=== PATIENT | female | born 1970 | race Caucasian/White ===

== ENCOUNTER 2016-09-21 10:02 | Emergency (ER) | payer OTHER ==
[~2016-09-21] VITALS: Ht 154.9 cm; Wt 63.5 kg
[2016-09-21 10:12] VITALS: BP 133/81
--- NOTE | 2016-09-21 10:33 | ED UPPER/LOWER EXTREMITY COMPL ---
History of Present Illness General Chief Complaint: Lower Extremity Injury Stated Complaint: "I FELL AND RIPED MY KNEE OPEN" Source: patient, old records Exam Limitations: no limitations Vital Signs & Intake/Output Vital Signs & Intake/Output Vital Signs Date Time Temp Pulse Resp B/P Pulse O2 O2 Flow FiO2 Ox Delivery Rate 09/21 1200 987 09/21 1049 98.0 09/21 1012 98.0 83 20 133/81 99 Room Air Room Air Allergies Coded Allergies: No Known Allergies (09/21/16) Reconcile Medications No Known Home Medications Triage Note: PT TO ED S/P "OUT FOR MORNING RUN AND FELL ONTO PAVEMENT". ARRIVES TO ED WITH RIGHT KNEE LACERATION, NO ACTIVE BLEEDING NOTED AT THIS TIME. Triage Nurses Notes Reviewed? yes Onset: Abrupt Duration: hour(s): (1), constant Timing: single episode today Severity: mild Severity Numbers: 3 Pain/Injury Location: Right: Knee. Method of Injury: fall No Modifying Factors: none Associated Symptoms: none HPI: 46-year-old female with no medical history presents to emergency room status post mechanical fall while she was outside running sustaining laceration injury to her right knee. The patient was able to get up and walk after she also sustained abrasions to her hand however denies pain. There is no head strike no loss of consciousness. No neck back chest or abdominal pain. She has any other extremity injury. Her right knee pain is aching throbbing nonradiating. She is not taken anything for her symptoms tetanus is unknown (ANNA REDMOND) Past History Travel History Traveled to [place] past 21 day No Medical History Any Pertinent Medical History? none Neurological: NONE EENT: NONE Cardiovascular: NONE Respiratory: NONE Gastrointestinal: NONE Hepatic: NONE Renal: NONE Musculoskeletal: NONE Psychiatric: NONE Endocrine: NONE Blood Disorders: NONE Cancer(s): NONE Surgical History Surgical History: non-contributory Psychosocial History What is your primary language Thai Tobacco Use: Never used ETOH Use: denies use Illicit Drug Use: denies illicit drug use Family History Hx Contributory? No (ANNA REDMOND) Review of Systems Review of Systems Constitutional: Reports: see HPI. All Other Systems: Reviewed and Negative Comments Review of systems: See HPI, All other systems negative. Constitutional, no chills no fever, no malaise HEENT: No visual changes no sore throat no congestion Cardiovascular: No chest pain , no palpitation Skin, no rashes, no change in skin Respiratory: No dyspnea no cough no sputum GI: No nausea no vomiting, no diarrhea, no bloating/constipation Muscle skeletal: joint pain, no joint swelling, no back pain, no neck pain, Neurologic: No numbness no headache Psych: No stress Heme/endocrine: No bruising no bleeding Immunology: No lymphadenopathy (ANNA REDMOND) Physical Exam Physical Exam General Appearance: well developed/nourished, alert, awake Comments: Well-developed well-nourished patient in no apparent distress. HEENT: Atraumatic, extraocular motion intact Neck: Supple, FROM Back: FROM Cardiovascular: Regular rate and rhythms no murmurs Respiratory: No respiratory distress. Patient speaking in full complete sentences. Breath sounds clear to auscultation bilaterally: NO W/R/R Shoulder: Atraumatic/Stable. FROM . Elbow: Atraumatic/stable. FROM. No laxity Upper arm/Forearm: Atraumatic. Nontender. 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 Brisk cap refill Hip/Pelvis: Atraumatic/Stable. FROM. No pain with pelvic compression Knee: There is a 4cm superficial irregular laceration over the anterior right knee, no active bleeding no visualized or palpated foreign body FROM. No joint swelling, no effusion. No laxity. Negative belgica/anterior drawer test. No pain with ROM Leg: Atraumatic. Nontender. No edema, 5 out of 5 strength in the lower extremity, normal dorsiflexion of great toe bilaterally, gross sensation is intact, patellar reflexes 2+ Ankle/Foot: Atraumatic/stable. Skin intact. FROM. No swelling, no effusion. No laxity on exam Pulses: Normal/equal DP/PT pulses bilaterally. Brisk cap refill Neuro: Alert and oriented x3 Skin: Warm & dry;No appreciable rash on exposed skin Psych: Mood affect normal, normal memory normal judgment. Diagram Legs Front/Back 1) Laceration as described above (ANNA REDMOND) Progress Differential Diagnosis: dislocation, fracture, sprain, tendon injury, laceration Plan of Care: Orders Procedure Date/time Status XRY-KNEE COMPLETE RIGHT 09/21 1038 Active Wound was thoroughly irrigated with normal saline Betadine peroxide tetanus IM ordered, patient medicated Motrin 600 mg by mouth I discussed with the patient at length all of their results. I had an extensive conversation regarding need for close follow up with their primary care physician this week as well as return precautions. Patient will return in 7-10 days for suture removal, she will return anytime sooner with any concerns signs of infection. I discussed with her the possibility of a foreign body not seen on examination or x-ray, or deep tendon injury still exists. I answered all of their questions, they feel comfortable with the plan and follow-up care. (ANNA REDMOND) Departure Departure Time of Disposition: 1143 Disposition: HOME OR SELF CARE Condition: Stable Clinical Impression Primary Impression: Knee laceration Secondary Impressions: Fall Referrals: LISSA ARREDONDO DO (PCP/Family) Additional Instructions: Keep area clean and covered as discussed, bacitracin daily. Return to ER in 7- 10 days for suture removal. The possibility of a retained foreign body not seen during examination today or deep tendon injury exists. Return to ER anytime sooner with any concerns or signs of infection: Redness, warmth, swelling discharge fever or chills. Departure Forms: Customer Survey General Discharge Information Prescriptions: Current Visit Scripts No Known Home Medications (ANNA REDMOND) PA/PAGE TECHNICIAN Co-Sign Statement Statement: ED Attending supervision documentation- [] I saw and evaluated the patient. I have also reviewed all the pertinent lab results and diagnostic results. I agree with the findings and the plan of care as documented in the PA's/PAGE TECHNICIAN's documentation. x I have reviewed the ED Record and agree with the PA's/PAGE TECHNICIAN's documentation. [] Additions or exceptions (if any) to the PAs/PAGE TECHNICIAN's note and plan are summarized below: [] (JEMMA CONNER,DIAZ) Procedures Laceration/Wound Repair Laceration/Wound Repair: Wound Location: lower extremity (right) Wound's Depth, Shape: irregular, superficial Wound Length (cm): 4 Wound Explored: clean, no foreign body removed, irrigated extensively Irrigated w/ Saline (ccs): 400 Betadine Prep? Yes Anesthesia: 1% lidocaine Volume Anesthetic (ccs): 8 Suture Size/Type: 3:0 Number of Sutures: 7 Layer Closure? No Sterile Dressing Applied: Yes Tetanus Status: up to date (TORRIE LU,ANNA)
--- NOTE | 2016-09-21 11:28 | RADIOLOGY REPORT ---
EXAMINATION: XR KNEE, RIGHT CLINICAL INFORMATION: 46-year-old woman with fall and right knee laceration. COMPARISON: None TECHNIQUE: Four views of the right knee. FINDINGS: There is no evidence of acute fracture. Alignment veins anatomic and articular cartilage spaces are preserved. There is no significant suprapatellar joint effusion. A soft tissue defect is seen above the patella. IMPRESSION: No evidence of acute fracture or dislocation.
== END 2016-09-21 11:55 ==
LOC: ERH 10:02
DX: S81.011A Laceration without foreign body, right knee, initial encounter (principal); W19.XXXA Unspecified fall, initial encounter; Y93.02 Activity, running; Y92.9 Unspecified place or not applicable
CPT/HCPCS: 73562-RT; 90471; 90714